=== PATIENT | male | born 1965 | race African-American/Black ===

== ENCOUNTER 2017-03-02 01:23 | Emergency (ER) | payer SELFPAY ==
[~2017-03-02 01:23] MED LIST: IBUP-1542 PO; NPH10OT BOTH EARS; PEN500 PO
== END 2017-03-02 01:55 | disposition left against medical advice (07) ==
LOC: E/R 01:23
DX: Z53.21 Procedure and treatment not carried out due to patient leaving prior to being seen by health care provider (principal)